=== PATIENT | male | born 1965 | race African-American/Black ===

== ENCOUNTER 2021-04-04 21:26 | Inpatient (IN) | payer MEDICAID ==
[~2021-04-04] VITALS: Ht 185.4 cm; Wt 100.9 kg
[2021-04-04] MEDS ORDERED: NALOXONE HCL 1MG/ML 2ML SYRINGE IV ONE (23:00)
[2021-04-04 23:27] LABS: Hematocrit 46.7 % (41.0-53.0); Hemoglobin 15.8 g/dL (13.5-17.5); Mean Corpuscular Hemoglobin 31.2 pg (28.0-32.0); Mean Corpuscular Hgb Conc. 33.8 g/dL (32.0-36.0); Mean Corpuscular Volume 92.2 fL (80.0-100.0); Red Blood Cells 5.06 10^6/uL (4.5-5.90); Red Cell Distribution Width 15.1 % (11.8-14.3); White Blood Cell 13.2 10^3/uL (4.4-10.8)
[2021-04-04 23:29] LABS: Urine Specific Gravity 1.021 (1.001-1.035)
[2021-04-04 23:29] LABS: Basophils % (manual) 0 (0.0-2.0); Blast Cells 0; Eosinophils % (manual) 0 (0-7); Metamyelocytes % 0; Myelocytes % 0; Promyelocytes % 0; Reactive Lymphocytes 0
[2021-04-04 23:30] LABS: Urine Bacteria FEW /hpf (None Seen); Urine Blood 2+ /uL (Negative); Urine Mucus FEW (None Seen); Urine WBC 67 /hpf (0 - 3); Urine WBC Clumps PRESENT /hpf (None Seen)
[2021-04-04 23:41] LABS: INR 0.99 (0.9-1.15); Partial Thromboplastin Time 20.9 sec (23.6-33.0)
[2021-04-04 23:57] LABS: Albumin 3.5 g/dL (3.4-5.0); Anion Gap 7 (5-15); Blood Urea Nitrogen 19 mg/dL (7-18); Calcium 9.1 mg/dL (8.5-10.1); Carbon Dioxide 21 mmol/L (21-32); Chloride 113 mmol/L (98-107); Glucose 157 mg/dL (74-106); Magnesium 2.1 mg/dL (1.6-2.6); Potassium 5.5 mmol/L (3.5-5.1); Sodium 141 mmol/L (136-145)
[2021-04-04 23:59] LABS: BUN/Creatinine Ratio 14.1; Blood Alcohol < 3.0 mg/dL (0-5); GFR African American 71 mL/min; GFR Non-African American 59 mL/min; Lactic Acid w/Reflex 3.7 mmol/L (0.4-2.0)
[2021-04-05 00:02] LABS: Amphetamine Screen, Urine NEGATIVE (NEGATIVE); Barbiturate Scree,Urine NEGATIVE (NEGATIVE); Benzodiazephine Screen, Urine NEGATIVE (NEGATIVE); Cannabinoid Screen, Urine POSITIVE (NEGATIVE); Cocaine Screen, Urine NEGATIVE (NEGATIVE); Opiate Scree,Urine NEGATIVE (NEGATIVE); Phencyclidine Screen, Urine NEGATIVE (NEGATIVE)
[2021-04-05 00:05] LABS: Alanine Aminotransferase 34 U/L (16-61); Alkaline Phosphatase 109 U/L (45-117); Aspartate Aminotransferase 50 U/L (15-37); Bilirubin, Total 0.3 mg/dL (0.2-1.0); Creatine Kinase IFCC 475 U/L (39-308)
[2021-04-05 00:13] LABS: Band Neutrophils % (manual) 8; Lymphocytes % (manual) 8 (10.0-50.0)
[2021-04-05 00:14] LABS: Monocytes % (manual) 1 (0-12)
[2021-04-05] MEDS ORDERED: hydrALAZINE HCL 20 MG/ML VL IV ONE (00:45)
[2021-04-05] MEDS ORDERED: SODIUM CHLORIDE 0.9% 1,000 ML IV ONE (02:15)
[2021-04-05] MEDS ORDERED: ASPirin 325 MG TAB PO ONE (03:15)
[2021-04-05] MEDS ORDERED: ENOXAPARIN SOD 100 MG/1 ML SYRINGE SC ONE (03:15)
[2021-04-05] MEDS ORDERED: LABETALOL HCL 5 MG/ML 4ML SYRINGE IV ONE (03:30)
[2021-04-05] MEDS ORDERED: cefTRIAXone 1GM/50ML D5W 50 ML IV ONE (05:30)
[2021-04-05] MEDS: SODIUM CHLORIDE 0.9% 1,000 ML IV SCH ×3 (07:00→23:58)
[2021-04-05] MEDS ORDERED: ACETAMINOPHEN 325 MG TAB PO PRN (07:00)
[2021-04-05] MEDS ORDERED: NITROGLYCERIN 0.4 MG SL TAB SL PRN (07:00)
[2021-04-05] MEDS ORDERED: ONDANSETRON HCL 4 MG/2 ML VIAL IV PRN (07:00)
[2021-04-05] MEDS ORDERED: DOCUSATE SOD 100 MG CAP PO PRN (07:00)
[2021-04-05] MEDS ORDERED: MORPHINE SULFATE INJECTION 2 MG/ML SYRG IV PRN (07:00)
[2021-04-05] MEDS: levoFLOXacin 500MG 100 ML IV SCH (10:54)
[2021-04-05 17:00] VITALS: BP 161/77
[2021-04-05] MEDS ORDERED: LORazepam 2MG/ML-1ML VIAL IV PRN (21:45)
[2021-04-05] MEDS: ATORVASTATIN 20 MG TAB PO SCH (22:17)
[2021-04-05 22:24] LABS: Cholesterol 161 mg/dL (< 200)
[2021-04-05 22:27] LABS: HDL Cholesterol 56 mg/dL (40-59); LDL Cholesterol 93 mg/dL (< 100); Triglycerides 74 mg/dL (< 150)
[2021-04-06] MEDS: NITROGLYCERIN 2% OINT 1GM PKG TD SCH ×4 (00:05→18:00)
[2021-04-06 00:16] VITALS: BP 145/91
[2021-04-06 05:24] VITALS: BP 125/73
[2021-04-06 06:16] LABS: Basophils % (manual) 0 (0.0-2.0); Blast Cells 0; Hematocrit 40.8 % (41.0-53.0); Hemoglobin 13.8 g/dL (13.5-17.5); Mean Corpuscular Hemoglobin 30.5 pg (28.0-32.0); Mean Corpuscular Hgb Conc. 33.7 g/dL (32.0-36.0); Mean Corpuscular Volume 90.3 fL (80.0-100.0); Metamyelocytes % 0; Myelocytes % 0; Promyelocytes % 0; Reactive Lymphocytes 0; Red Blood Cells 4.51 10^6/uL (4.5-5.90); Red Cell Distribution Width 14.9 % (11.8-14.3); White Blood Cell 8.3 10^3/uL (4.4-10.8)
[2021-04-06 06:58] LABS: Band Neutrophils % (manual) 2; Eosinophils % (manual) 1 (0-7); Lymphocytes % (manual) 33 (10.0-50.0); Monocytes % (manual) 10 (0-12)
[2021-04-06 08:56] VITALS: BP_SYST 112; BP_SYST 157; BP_DIAS 61; BP_DIAS 83
[2021-04-06 09:45] LABS: Albumin 3.2 g/dL (3.4-5.0); Potassium 3.8 mmol/L (3.5-5.1)
[2021-04-06 09:48] LABS: BUN/Creatinine Ratio 12.2; Bilirubin, Total 1.1 mg/dL (0.2-1.0); Total Protein 7.2 g/dL (6.4-8.2)
[2021-04-06] MEDS: levoFLOXacin 500MG 100 ML IV SCH (10:10)
[2021-04-06] MEDS: SODIUM CHLORIDE 0.9% 1,000 ML IV SCH ×3 (10:10→22:40)
[2021-04-06] MEDS: ENOXAPARIN SOD 40 MG/0.4 ML SYRINGE SC SCH (10:11)
[2021-04-06 13:00] VITALS: BP 164/81
[2021-04-06 17:00] VITALS: BP 173/79
[2021-04-06] MEDS: hydrALAZINE HCL 20 MG/ML VL IV PRN (20:48)
[2021-04-06] MEDS: ATORVASTATIN 20 MG TAB PO SCH (21:46)
[2021-04-06 22:00] VITALS: BP 140/111
[2021-04-07] MEDS: NITROGLYCERIN 2% OINT 1GM PKG TD SCH ×4 (00:45→19:09)
[2021-04-07 05:00] VITALS: BP 131/70
[2021-04-07] MEDS: SODIUM CHLORIDE 0.9% 1,000 ML IV SCH ×2 (06:49→19:08)
[2021-04-07] MEDS: ENOXAPARIN SOD 40 MG/0.4 ML SYRINGE SC SCH (08:54)
[2021-04-07] MEDS: levoFLOXacin 500MG 100 ML IV SCH (08:54)
[2021-04-07 09:00] VITALS: BP 142/79
[2021-04-07] MEDS: ERTAPENEM SOD INJ 1 GM in SODIUM CHL 0.9% 50 ML IV SCH (12:08)
[2021-04-07 13:00] VITALS: BP 111/72
[2021-04-07 17:00] VITALS: BP 157/72
[2021-04-07] MEDS ORDERED: ACETAMINOPHEN 500 MG TAB PO PRN (20:15)
[2021-04-07 22:00] VITALS: BP 164/84
[2021-04-07] MEDS: ATORVASTATIN 20 MG TAB PO SCH (22:11)
[2021-04-08] VITALS (39 sets, daily range): BP systolic 79–166; BP diastolic 46–109
[2021-04-08] MEDS: NITROGLYCERIN 2% OINT 1GM PKG TD SCH ×4 (00:25→18:00)
[2021-04-08] MEDS: SODIUM CHLORIDE 0.9% 1,000 ML IV SCH ×3 (06:00→20:54)
[2021-04-08] MEDS: hydrALAZINE HCL 20 MG/ML VL IV PRN (06:51)
[2021-04-08] MEDS: ENOXAPARIN SOD 40 MG/0.4 ML SYRINGE SC SCH (09:24)
[2021-04-08] MEDS: ERTAPENEM SOD INJ 1 GM in SODIUM CHL 0.9% 50 ML IV SCH (09:24)
[2021-04-08] MEDS: MORPHINE SULFATE 4 MG/ML SYR/VIAL IV PRN (09:24)
[2021-04-08] MEDS ORDERED: ROCURONIUM 10MG/ML 10ML VIAL IV ONE (14:41)
[2021-04-08] MEDS ORDERED: ETOMIDATE (2MG/ML) 20ML VIAL IV ONE (14:42)
[2021-04-08] MEDS ORDERED: SUCCINYLCHOLINE CHLORIDE 20 MG/ML 10ML VIAL IV ONE (14:42)
[2021-04-08] MEDS ORDERED: SODIUM BICARBONATE 8.4 % INJ 50ML VIAL IV ONE ×2 (14:48→14:49)
[2021-04-08] MEDS ORDERED: AMIODARONE 450mg/250ml AE 0 ML IV ONE (14:49)
[2021-04-08] MEDS ORDERED: AMIODARONE HCL 150 MG in D5W 5% 100 ML IV ONE (15:00)
[2021-04-08] MEDS ORDERED: MIDAZOLAM DRIP 50 mg/50mL 50 ML IV ONE (15:01)
[2021-04-08] MEDS: MIDAZOLAM DRIP 50 mg/50mL 50 ML IV SCH ×2 (15:02→21:00)
[2021-04-08] MEDS ORDERED: AMIODARONE HCL (50 MG/ ML) 3 ML VIAL IV ONE (15:02)
[2021-04-08 15:20] LABS: Basophils # (auto) 0 10 ^3/uL (0-0.2); Basophils % (auto) 0.3 % (0.0-2.0); Eosinophils # (auto) 0.1 10 ^3/uL (0-0.8); Eosinophils % (auto) 1.1 % (0.0-7.0); Hematocrit 41.8 % (41.0-53.0); Hemoglobin 13.9 g/dL (13.5-17.5); Lymphocytes % (auto) 30.9 % (10.0-50.0); Mean Corpuscular Hgb Conc. 33.2 g/dL (32.0-36.0); Mean Corpuscular Volume 93.4 fL (80.0-100.0); Monocytes # (auto) 0.4 10 ^3/uL (0-1.3); Monocytes % (auto) 2.8 % (0.0-12.0); Neutrophils # (auto) 8.5 10 ^3/uL (1.6-8.6); Neutrophils % (auto) 64.9 % (37.0-80.0); Red Blood Cells 4.48 10^6/uL (4.5-5.90); Red Cell Distribution Width 14.5 % (11.8-14.3)
[2021-04-08 15:36] LABS: Albumin 2.9 g/dL (3.4-5.0); Calcium 8.8 mg/dL (8.5-10.1)
[2021-04-08 15:50] LABS: Lactic Acid w/Reflex 14.2 mmol/L (0.4-2.0)
[2021-04-08 15:55] LABS: BUN/Creatinine Ratio 7.5; Bilirubin, Total 1.1 mg/dL (0.2-1.0); Total Protein 6.9 g/dL (6.4-8.2)
[2021-04-08] MEDS: NOREPINEPHRINE 8 MG/250ML KIT 250 ML IV SCH (19:37)
[2021-04-08 22:22] LABS: BUN/Creatinine Ratio 10.4; Calcium 8.4 mg/dL (8.5-10.1); Potassium 3.7 mmol/L (3.5-5.1)
[2021-04-08] MEDS: ATORVASTATIN 20 MG TAB PO SCH (22:49)
[2021-04-09] VITALS (95 sets, daily range): BP systolic 115–160; BP diastolic 69–93
[2021-04-09 05:08] LABS: Basophils # (auto) 0 10 ^3/uL (0-0.2); Basophils % (auto) 0.3 % (0.0-2.0); Eosinophils # (auto) 0.1 10 ^3/uL (0-0.8); Eosinophils % (auto) 1.2 % (0.0-7.0); Hematocrit 36.9 % (41.0-53.0); Hemoglobin 12.8 g/dL (13.5-17.5); Lymphocytes % (auto) 13.7 % (10.0-50.0); Mean Corpuscular Hemoglobin 31.6 pg (28.0-32.0); Mean Corpuscular Hgb Conc. 34.6 g/dL (32.0-36.0); Mean Corpuscular Volume 91.4 fL (80.0-100.0); Monocytes # (auto) 0.7 10 ^3/uL (0-1.3); Monocytes % (auto) 10.2 % (0.0-12.0); Neutrophils # (auto) 5.4 10 ^3/uL (1.6-8.6); Neutrophils % (auto) 74.6 % (37.0-80.0); Nucleated Red Blood Cells % 0.1 %; Red Blood Cells 4.04 10^6/uL (4.5-5.90); Red Cell Distribution Width 14.5 % (11.8-14.3); White Blood Cell 7.2 10^3/uL (4.4-10.8)
[2021-04-09 05:32] LABS: BUN/Creatinine Ratio 11.8; Calcium 8.3 mg/dL (8.5-10.1); Potassium 3.8 mmol/L (3.5-5.1)
[2021-04-09] MEDS: SODIUM CHLORIDE 0.9% 1,000 ML IV SCH ×3 (05:41→16:07)
[2021-04-09] MEDS: NITROGLYCERIN 2% OINT 1GM PKG TD SCH ×2 (06:00)
[2021-04-09] MEDS: MIDAZOLAM DRIP 50 mg/50mL 50 ML IV SCH ×5 (07:36→22:15)
[2021-04-09] MEDS: fentaNYL Drip 2500mCg/250mlNS 250 ML IV SCH (09:19)
[2021-04-09] MEDS: ENOXAPARIN SOD 40 MG/0.4 ML SYRINGE SC SCH (09:42)
[2021-04-09] MEDS: ERTAPENEM SOD INJ 1 GM in SODIUM CHL 0.9% 50 ML IV SCH (09:53)
[2021-04-09] MEDS: NOREPINEPHRINE 8 MG/250ML KIT 250 ML IV SCH (13:25)
[2021-04-09] MEDS: ATORVASTATIN 20 MG TAB PO SCH (22:56)
[2021-04-10] VITALS (100 sets, daily range): BP systolic 95–174; BP diastolic 61–89
[2021-04-10] MEDS: SODIUM CHLORIDE 0.9% 1,000 ML IV SCH ×3 (01:30→19:27)
[2021-04-10] MEDS: MIDAZOLAM DRIP 50 mg/50mL 50 ML IV SCH ×2 (02:31→06:23)
[2021-04-10 05:01] LABS: Basophils # (auto) 0 10 ^3/uL (0-0.2); Basophils % (auto) 0.5 % (0.0-2.0); Eosinophils # (auto) 0.2 10 ^3/uL (0-0.8); Eosinophils % (auto) 3.3 % (0.0-7.0); Hematocrit 37.1 % (41.0-53.0); Hemoglobin 12.5 g/dL (13.5-17.5); Lymphocytes # (auto) 1.2 10 ^3/uL (0.4-5.4); Lymphocytes % (auto) 17.9 % (10.0-50.0); Mean Corpuscular Hemoglobin 30.8 pg (28.0-32.0); Mean Corpuscular Hgb Conc. 33.7 g/dL (32.0-36.0); Mean Corpuscular Volume 91.5 fL (80.0-100.0); Monocytes # (auto) 0.7 10 ^3/uL (0-1.3); Monocytes % (auto) 9.8 % (0.0-12.0); Neutrophils # (auto) 4.7 10 ^3/uL (1.6-8.6); Neutrophils % (auto) 68.5 % (37.0-80.0); Nucleated Red Blood Cells % 0.1 %; Red Blood Cells 4.06 10^6/uL (4.5-5.90); Red Cell Distribution Width 14.4 % (11.8-14.3); White Blood Cell 6.9 10^3/uL (4.4-10.8)
[2021-04-10 05:21] LABS: Albumin 2.4 g/dL (3.4-5.0); Calcium 8.2 mg/dL (8.5-10.1); Potassium 3.9 mmol/L (3.5-5.1)
[2021-04-10 05:24] LABS: BUN/Creatinine Ratio 12.7; Bilirubin, Total 0.7 mg/dL (0.2-1.0); Total Protein 5.9 g/dL (6.4-8.2)
[2021-04-10] MEDS: ENOXAPARIN SOD 40 MG/0.4 ML SYRINGE SC SCH (08:48)
[2021-04-10] MEDS: ERTAPENEM SOD INJ 1 GM in SODIUM CHL 0.9% 50 ML IV SCH (08:49)
[2021-04-10] MEDS: fentaNYL Drip 2500mCg/250mlNS 250 ML IV SCH (09:00)
[2021-04-10] MEDS: NOREPINEPHRINE 8 MG/250ML KIT 250 ML IV SCH (14:45)
[2021-04-10 18:37] LABS: Protein, Urine 147.8 mg/dL (0.0-11.9); Urine Bacteria NONE SEEN /hpf (None Seen); Urine Blood 2+ /uL (Negative); Urine Hyaline Cast MANY /lpf (0 - 2); Urine Mucus FEW (None Seen); Urine Specific Gravity 1.021 (1.001-1.035); Urine WBC 14 /hpf (0 - 3)
[2021-04-10] MEDS: hydrALAZINE HCL 20 MG/ML VL IV PRN (19:07)
[2021-04-10] MEDS: ATORVASTATIN 20 MG TAB PO SCH (22:00)
[2021-04-11] VITALS (88 sets, daily range): BP systolic 129–189; BP diastolic 57–91
[2021-04-11] MEDS: fentaNYL Drip 2500mCg/250mlNS 250 ML IV SCH (03:26)
[2021-04-11] MEDS: SODIUM CHLORIDE 0.9% 1,000 ML IV SCH (03:30)
[2021-04-11 05:58] LABS: Basophils # (auto) 0 10 ^3/uL (0-0.2); Basophils % (auto) 0.8 % (0.0-2.0); Eosinophils # (auto) 0.2 10 ^3/uL (0-0.8); Eosinophils % (auto) 2.9 % (0.0-7.0); Hematocrit 33.4 % (41.0-53.0); Hemoglobin 11.6 g/dL (13.5-17.5); Lymphocytes % (auto) 14.5 % (10.0-50.0); Mean Corpuscular Hemoglobin 31.5 pg (28.0-32.0); Mean Corpuscular Hgb Conc. 34.7 g/dL (32.0-36.0); Monocytes # (auto) 0.7 10 ^3/uL (0-1.3); Monocytes % (auto) 10.6 % (0.0-12.0); Neutrophils # (auto) 4.7 10 ^3/uL (1.6-8.6); Neutrophils % (auto) 71.2 % (37.0-80.0); Red Blood Cells 3.68 10^6/uL (4.5-5.90); Red Cell Distribution Width 14.7 % (11.8-14.3); White Blood Cell 6.6 10^3/uL (4.4-10.8)
[2021-04-11 06:23] LABS: BUN/Creatinine Ratio 15.1; Calcium 8.4 mg/dL (8.5-10.1); Potassium 3.9 mmol/L (3.5-5.1)
[2021-04-11] MEDS: ENOXAPARIN SOD 40 MG/0.4 ML SYRINGE SC SCH (09:59)
[2021-04-11] MEDS: ERTAPENEM SOD INJ 1 GM in SODIUM CHL 0.9% 50 ML IV SCH (09:59)
[2021-04-11] MEDS: hydrALAZINE HCL 20 MG/ML VL IV PRN ×3 (10:01→22:56)
[2021-04-11] MEDS ORDERED: FUROSEMIDE 40 MG/4 ML VIAL IV ONE (11:30)
[2021-04-11] MEDS: LABETALOL HCL 5 MG/ML 4ML SYRINGE IV PRN ×2 (12:55→18:11)
[2021-04-11] MEDS: ACETAMINOPHEN 650 MG RECT SUPP PR PRN ×2 (12:55→18:10)
[2021-04-11] MEDS: NOREPINEPHRINE 8 MG/250ML KIT 250 ML IV SCH (14:45)
[2021-04-11] MEDS: MIDAZOLAM DRIP 50 mg/50mL 50 ML IV SCH (15:00)
[2021-04-11] MEDS: InsuLIN REG 1unit/0.01ml Soln (100units/ml) SC SCH (17:10)
[2021-04-11] MEDS: ACCU-CHEK COMFORT CURVE STRIP VI SCH (17:10)
[2021-04-11] MEDS: ATORVASTATIN 20 MG TAB PO SCH (19:47)
[2021-04-12] VITALS (91 sets, daily range): BP systolic 75–140; BP diastolic 41–87
[2021-04-12 00:59] LABS: Basophils # (auto) 0.1 10 ^3/uL (0-0.2); Basophils % (auto) 0.9 % (0.0-2.0); Eosinophils # (auto) 0.2 10 ^3/uL (0-0.8); Eosinophils % (auto) 1.7 % (0.0-7.0); Hematocrit 37.9 % (41.0-53.0); Hemoglobin 13.4 g/dL (13.5-17.5); Lymphocytes # (auto) 1.2 10 ^3/uL (0.4-5.4); Lymphocytes % (auto) 9.9 % (10.0-50.0); Mean Corpuscular Hemoglobin 32.2 pg (28.0-32.0); Mean Corpuscular Hgb Conc. 35.4 g/dL (32.0-36.0); Mean Corpuscular Volume 91.1 fL (80.0-100.0); Monocytes # (auto) 0.9 10 ^3/uL (0-1.3); Monocytes % (auto) 7.3 % (0.0-12.0); Neutrophils # (auto) 9.7 10 ^3/uL (1.6-8.6); Neutrophils % (auto) 80.2 % (37.0-80.0); Nucleated Red Blood Cells % 0.1 %; Red Blood Cells 4.17 10^6/uL (4.5-5.90); Red Cell Distribution Width 14.1 % (11.8-14.3); White Blood Cell 12.2 10^3/uL (4.4-10.8)
[2021-04-12 01:26] LABS: Albumin 2.6 g/dL (3.4-5.0); Calcium 8.8 mg/dL (8.5-10.1)
[2021-04-12 01:28] LABS: BUN/Creatinine Ratio 14.2
[2021-04-12 01:31] LABS: Bilirubin, Total 1.1 mg/dL (0.2-1.0); Total Protein 6.9 g/dL (6.4-8.2)
[2021-04-12] MEDS ORDERED: ETOMIDATE (2MG/ML) 20ML VIAL IV ONE (01:36)
[2021-04-12] MEDS ORDERED: SUCCINYLCHOLINE CHLORIDE 20 MG/ML 10ML VIAL IV ONE (01:37)
[2021-04-12] MEDS ORDERED: PROPOFOL 100 ML IV ONE (01:38)
[2021-04-12] MEDS: PROPOFOL 100 ML IV SCH ×2 (01:45→10:15)
[2021-04-12] MEDS: fentaNYL Drip 2500mCg/250mlNS 250 ML IV SCH (01:45)
[2021-04-12 02:36] LABS: Lactic Acid w/Reflex 2.5 mmol/L (0.4-2.0)
[2021-04-12] MEDS: InsuLIN REG 1unit/0.01ml Soln (100units/ml) SC SCH ×5 (05:30→23:55)
[2021-04-12] MEDS: ACCU-CHEK COMFORT CURVE STRIP VI SCH ×5 (05:30→23:55)
[2021-04-12] MEDS: FUROSEMIDE 40 MG/4 ML VIAL IV SCH (10:00)
[2021-04-12] MEDS: ENOXAPARIN SOD 40 MG/0.4 ML SYRINGE SC SCH (10:00)
[2021-04-12] MEDS: ERTAPENEM SOD INJ 1 GM in SODIUM CHL 0.9% 50 ML IV SCH (10:01)
[2021-04-12] MEDS ORDERED: VANCOMYCIN PER PHARMACY 0 MG IV SCH (15:15)
[2021-04-12] MEDS: MIDAZOLAM DRIP 50 mg/50mL 50 ML IV SCH (15:30)
[2021-04-12] MEDS: NOREPINEPHRINE 8 MG/250ML KIT 250 ML IV SCH (15:32)
[2021-04-12] MEDS: VANCOMYCIN 1GM/250ML 250 ML IV SCH (16:38)
[2021-04-12] MEDS: FREE WATER GT SCH ×2 (18:30→21:43)
[2021-04-12] MEDS: MEROPENEM 1GM IVPB 100 ML IV SCH (21:44)
[2021-04-12] MEDS: ATORVASTATIN 20 MG TAB PO SCH (21:44)
[2021-04-12] MEDS: ALBUTEROL SULF 2.5 MG/0.5ML(0.5%) NEB SOLN NEB PRN (22:12)
[2021-04-12] MEDS: IPRATROPIUM BROM 0.5 MG/2.5ML INH SOL NEB PRN (22:12)
[2021-04-13] VITALS (98 sets, daily range): BP systolic 89–140; BP diastolic 47–74
[2021-04-13] MEDS: FREE WATER GT SCH ×6 (02:00→22:38)
[2021-04-13 03:53] LABS: Basophils # (auto) 0.1 10 ^3/uL (0-0.2); Eosinophils # (auto) 0.4 10 ^3/uL (0-0.8); Hemoglobin 10.9 g/dL (13.5-17.5); Lymphocytes # (auto) 1.7 10 ^3/uL (0.4-5.4); Lymphocytes % (auto) 22.4 % (10.0-50.0); Mean Corpuscular Hemoglobin 31.2 pg (28.0-32.0); Mean Corpuscular Hgb Conc. 34.1 g/dL (32.0-36.0); Mean Corpuscular Volume 91.4 fL (80.0-100.0); Monocytes # (auto) 0.6 10 ^3/uL (0-1.3); Monocytes % (auto) 8.5 % (0.0-12.0); Neutrophils # (auto) 4.8 10 ^3/uL (1.6-8.6); Neutrophils % (auto) 63.1 % (37.0-80.0); Nucleated Red Blood Cells % 0.2 %; Red Cell Distribution Width 14.6 % (11.8-14.3); White Blood Cell 7.6 10^3/uL (4.4-10.8)
[2021-04-13] MEDS: VANCOMYCIN 1GM/250ML 250 ML IV SCH (04:00)
[2021-04-13 04:23] LABS: Calcium 8.6 mg/dL (8.5-10.1); Potassium 3.9 mmol/L (3.5-5.1)
[2021-04-13 04:29] LABS: Albumin 2.1 g/dL (3.4-5.0); BUN/Creatinine Ratio 14.3; Bilirubin, Total 0.4 mg/dL (0.2-1.0); Phosphorus 3.5 mg/dL (2.5-4.90); Total Protein 5.9 g/dL (6.4-8.2)
[2021-04-13] MEDS: ACCU-CHEK COMFORT CURVE STRIP VI SCH ×3 (05:46→17:26)
[2021-04-13] MEDS: InsuLIN REG 1unit/0.01ml Soln (100units/ml) SC SCH ×3 (05:47→17:18)
[2021-04-13] MEDS: MEROPENEM 1GM IVPB 100 ML IV SCH ×3 (06:00→22:38)
[2021-04-13] MEDS: ALBUTEROL SULF 2.5 MG/0.5ML(0.5%) NEB SOLN NEB PRN (06:26)
[2021-04-13] MEDS: IPRATROPIUM BROM 0.5 MG/2.5ML INH SOL NEB PRN (06:26)
[2021-04-13] MEDS: PROPOFOL 100 ML IV SCH ×3 (08:30→22:39)
[2021-04-13] MEDS: PANTOPRAZOLE 40 MG/10 ML VIAL INJ IV SCH (10:06)
[2021-04-13] MEDS: ENOXAPARIN SOD 40 MG/0.4 ML SYRINGE SC SCH (10:06)
[2021-04-13] MEDS: FUROSEMIDE 40 MG/4 ML VIAL IV SCH (10:07)
[2021-04-13] MEDS: DEXTROSE (50%) 50ML SYRG IV PRN (12:47)
[2021-04-13] MEDS: fentaNYL Drip 2500mCg/250mlNS 250 ML IV SCH (13:00)
[2021-04-13] MEDS: ATORVASTATIN 20 MG TAB PO SCH (22:39)
[2021-04-13] MEDS: MIDAZOLAM DRIP 50 mg/50mL 50 ML IV SCH (22:40)
[2021-04-13] MEDS: NOREPINEPHRINE 8 MG/250ML KIT 250 ML IV SCH (22:40)
[2021-04-14] VITALS (99 sets, daily range): BP systolic 90–163; BP diastolic 46–84
[2021-04-14] MEDS: ACCU-CHEK COMFORT CURVE STRIP VI SCH ×3 (00:08→12:00)
[2021-04-14] MEDS: FREE WATER GT SCH ×5 (02:00→22:13)
[2021-04-14 04:10] LABS: Basophils # (auto) 0 10 ^3/uL (0-0.2); Basophils % (auto) 0.8 % (0.0-2.0); Eosinophils # (auto) 0.3 10 ^3/uL (0-0.8); Eosinophils % (auto) 6.3 % (0.0-7.0); Hematocrit 32.3 % (41.0-53.0); Hemoglobin 11.1 g/dL (13.5-17.5); Lymphocytes # (auto) 1.5 10 ^3/uL (0.4-5.4); Lymphocytes % (auto) 27.1 % (10.0-50.0); Mean Corpuscular Hemoglobin 31.5 pg (28.0-32.0); Mean Corpuscular Hgb Conc. 34.2 g/dL (32.0-36.0); Mean Corpuscular Volume 91.9 fL (80.0-100.0); Monocytes # (auto) 0.6 10 ^3/uL (0-1.3); Monocytes % (auto) 11.1 % (0.0-12.0); Neutrophils % (auto) 54.7 % (37.0-80.0); Nucleated Red Blood Cells % 0.1 %; Red Blood Cells 3.52 10^6/uL (4.5-5.90); Red Cell Distribution Width 14.2 % (11.8-14.3); White Blood Cell 5.5 10^3/uL (4.4-10.8)
[2021-04-14 04:36] LABS: Albumin 2.1 g/dL (3.4-5.0); Calcium 8.4 mg/dL (8.5-10.1); Potassium 3.8 mmol/L (3.5-5.1)
[2021-04-14 04:39] LABS: BUN/Creatinine Ratio 16.9; Bilirubin, Total 0.6 mg/dL (0.2-1.0); Total Protein 6.2 g/dL (6.4-8.2)
[2021-04-14] MEDS: InsuLIN REG 1unit/0.01ml Soln (100units/ml) SC SCH ×3 (05:25→12:00)
[2021-04-14] MEDS: MEROPENEM 1GM IVPB 100 ML IV SCH ×3 (05:26→22:12)
[2021-04-14] MEDS: fentaNYL Drip 2500mCg/250mlNS 250 ML IV SCH ×2 (06:25→22:19)
[2021-04-14] MEDS: PROPOFOL 100 ML IV SCH ×3 (08:02→22:20)
[2021-04-14] MEDS ORDERED: EPINEPHrine HCL 1 MG/1 ML AMP ONE (08:56)
[2021-04-14] MEDS ORDERED: SODIUM CHLORIDE LOCK 40 ML ONE (08:56)
[2021-04-14] MEDS ORDERED: LIDOCAINE 2%HCL (LOCAL ANESTH.) INJ 20ML MDV ONE (08:56)
[2021-04-14] MEDS ORDERED: MIDAZOLAM HCL 5 MG/ML-1ML VIAL ONE (08:57)
[2021-04-14] MEDS ORDERED: fentaNYL CITRATE 100 MCG/2 ML VL ONE (08:57)
[2021-04-14] MEDS ORDERED: GLYCOPYRROLATE 0.2 MG/ML 1ML VIAL ONE (08:57)
[2021-04-14] MEDS ORDERED: LIDOCAINE HCL 2% TOP JELLY 5ML TOP ONE (08:57)
[2021-04-14] MEDS: PANTOPRAZOLE 40 MG/10 ML VIAL INJ IV SCH (10:52)
[2021-04-14] MEDS: ENOXAPARIN SOD 40 MG/0.4 ML SYRINGE SC SCH (10:52)
[2021-04-14] MEDS: NOREPINEPHRINE 8 MG/250ML KIT 250 ML IV SCH (14:45)
[2021-04-14] MEDS: MIDAZOLAM DRIP 50 mg/50mL 50 ML IV SCH (15:00)
[2021-04-14] MEDS: ATORVASTATIN 20 MG TAB PO SCH (22:14)
[2021-04-15] VITALS (48 sets, daily range): BP systolic 95–173; BP diastolic 50–94
[2021-04-15] MEDS: ACCU-CHEK COMFORT CURVE STRIP VI SCH ×5 (00:23→23:52)
[2021-04-15] MEDS: DEXTROSE (50%) 50ML SYRG IV PRN ×2 (00:30→06:10)
[2021-04-15] MEDS: FREE WATER GT SCH ×6 (02:00→22:00)
[2021-04-15] MEDS: PROPOFOL 100 ML IV SCH ×4 (04:02→19:56)
[2021-04-15 04:20] LABS: Basophils # (auto) 0 10 ^3/uL (0-0.2); Basophils % (auto) 0.5 % (0.0-2.0); Eosinophils # (auto) 0.4 10 ^3/uL (0-0.8); Eosinophils % (auto) 5.7 % (0.0-7.0); Hemoglobin 11.9 g/dL (13.5-17.5); Lymphocytes % (auto) 30.3 % (10.0-50.0); Mean Corpuscular Hemoglobin 31.2 pg (28.0-32.0); Mean Corpuscular Hgb Conc. 33.9 g/dL (32.0-36.0); Mean Corpuscular Volume 91.9 fL (80.0-100.0); Monocytes # (auto) 0.7 10 ^3/uL (0-1.3); Monocytes % (auto) 10.1 % (0.0-12.0); Neutrophils # (auto) 3.6 10 ^3/uL (1.6-8.6); Neutrophils % (auto) 53.4 % (37.0-80.0); Red Blood Cells 3.81 10^6/uL (4.5-5.90); Red Cell Distribution Width 14.2 % (11.8-14.3); White Blood Cell 6.8 10^3/uL (4.4-10.8)
[2021-04-15 04:43] LABS: Potassium 3.8 mmol/L (3.5-5.1)
[2021-04-15 04:50] LABS: Albumin 2.5 g/dL (3.4-5.0); BUN/Creatinine Ratio 17.3; Calcium 8.8 mg/dL (8.5-10.1)
[2021-04-15 04:54] LABS: Bilirubin, Total 0.5 mg/dL (0.2-1.0); Total Protein 6.9 g/dL (6.4-8.2)
[2021-04-15] MEDS: InsuLIN REG 1unit/0.01ml Soln (100units/ml) SC SCH ×5 (05:52→23:52)
[2021-04-15] MEDS: MEROPENEM 1GM IVPB 100 ML IV SCH ×3 (05:52→22:10)
[2021-04-15] MEDS: ACETAMINOPHEN 650 MG RECT SUPP PR PRN ×2 (06:30→23:54)
[2021-04-15] MEDS: NOREPINEPHRINE 8 MG/250ML KIT 250 ML IV SCH (14:45)
[2021-04-15] MEDS: MIDAZOLAM DRIP 50 mg/50mL 50 ML IV SCH (15:00)
[2021-04-15] MEDS ORDERED: FUROSEMIDE 40 MG/4 ML VIAL IV ONE (15:45)
[2021-04-15] MEDS: PANTOPRAZOLE 40 MG/10 ML VIAL INJ IV SCH (19:39)
[2021-04-15] MEDS: ENOXAPARIN SOD 40 MG/0.4 ML SYRINGE SC SCH (19:40)
[2021-04-15] MEDS: ATORVASTATIN 20 MG TAB PO SCH (22:00)
[2021-04-15] MEDS: hydrALAZINE HCL 20 MG/ML VL IV PRN (22:00)
[2021-04-16] VITALS (13 sets, daily range): BP systolic 137–180; BP diastolic 69–84
[2021-04-16] MEDS: MORPHINE SULFATE 4 MG/ML SYR/VIAL IV PRN (01:04)
[2021-04-16] MEDS: FREE WATER GT SCH ×4 (02:00→14:00)
[2021-04-16] MEDS: hydrALAZINE HCL 20 MG/ML VL IV PRN (05:00)
[2021-04-16] MEDS: ACCU-CHEK COMFORT CURVE STRIP VI SCH ×3 (05:18→17:13)
[2021-04-16] MEDS: InsuLIN REG 1unit/0.01ml Soln (100units/ml) SC SCH ×3 (05:19→17:13)
[2021-04-16] MEDS: MEROPENEM 1GM IVPB 100 ML IV SCH ×3 (05:19→22:30)
[2021-04-16] MEDS: fentaNYL Drip 2500mCg/250mlNS 250 ML IV SCH (05:19)
[2021-04-16] MEDS: LABETALOL HCL 5 MG/ML 4ML SYRINGE IV PRN ×2 (09:02)
[2021-04-16] MEDS: ENOXAPARIN SOD 40 MG/0.4 ML SYRINGE SC SCH (09:57)
[2021-04-16] MEDS: PANTOPRAZOLE 40 MG/10 ML VIAL INJ IV SCH (09:57)
[2021-04-16 10:47] LABS: Basophils # (auto) 0 10 ^3/uL (0-0.2); Basophils % (auto) 0.4 % (0.0-2.0); Eosinophils # (auto) 0.2 10 ^3/uL (0-0.8); Eosinophils % (auto) 2.1 % (0.0-7.0); Hematocrit 35.9 % (41.0-53.0); Hemoglobin 12.4 g/dL (13.5-17.5); Lymphocytes % (auto) 12.2 % (10.0-50.0); Mean Corpuscular Hemoglobin 31.3 pg (28.0-32.0); Mean Corpuscular Hgb Conc. 34.5 g/dL (32.0-36.0); Mean Corpuscular Volume 90.9 fL (80.0-100.0); Monocytes # (auto) 0.6 10 ^3/uL (0-1.3); Monocytes % (auto) 7.1 % (0.0-12.0); Neutrophils # (auto) 6.4 10 ^3/uL (1.6-8.6); Neutrophils % (auto) 78.2 % (37.0-80.0); Red Blood Cells 3.95 10^6/uL (4.5-5.90); Red Cell Distribution Width 13.9 % (11.8-14.3); White Blood Cell 8.2 10^3/uL (4.4-10.8)
[2021-04-16 11:18] LABS: Potassium 3.7 mmol/L (3.5-5.1)
[2021-04-16 11:24] LABS: Albumin 2.6 g/dL (3.4-5.0); BUN/Creatinine Ratio 19.4; Bilirubin, Total 0.8 mg/dL (0.2-1.0); Calcium 9.4 mg/dL (8.5-10.1); Magnesium 1.7 mg/dL (1.6-2.6); Phosphorus 3.3 mg/dL (2.5-4.90); Total Protein 7.4 g/dL (6.4-8.2)
[2021-04-16] MEDS: FREE WATER PO SCH ×2 (17:38→22:00)
[2021-04-16] MEDS: ATORVASTATIN 20 MG TAB PO SCH (22:00)
[2021-04-17] MEDS: ACCU-CHEK COMFORT CURVE STRIP VI SCH ×5 (00:23→23:57)
[2021-04-17] MEDS: FREE WATER PO SCH ×3 (02:00→10:01)
[2021-04-17 05:00] VITALS: BP 157/92
[2021-04-17] MEDS: InsuLIN REG 1unit/0.01ml Soln (100units/ml) SC SCH ×5 (05:41→23:58)
[2021-04-17] MEDS: MEROPENEM 1GM IVPB 100 ML IV SCH ×3 (05:41→22:14)
[2021-04-17 09:00] VITALS: BP 155/85
[2021-04-17] MEDS: PANTOPRAZOLE 40 MG/10 ML VIAL INJ IV SCH (09:59)
[2021-04-17] MEDS: ENOXAPARIN SOD 40 MG/0.4 ML SYRINGE SC SCH (10:00)
[2021-04-17 13:00] VITALS: BP 158/81
[2021-04-17 17:00] VITALS: BP 143/77
[2021-04-17] MEDS: ATORVASTATIN 20 MG TAB PO SCH (21:12)
[2021-04-17 22:00] VITALS: BP 150/70
[2021-04-17] MEDS: HYDROcodone-ACET 5/325MG TAB PO PRN (22:14)
[2021-04-18 05:00] VITALS: BP 151/99
[2021-04-18] MEDS: MEROPENEM 1GM IVPB 100 ML IV SCH ×3 (05:58→22:27)
[2021-04-18] MEDS: ACCU-CHEK COMFORT CURVE STRIP VI SCH ×3 (05:59→17:33)
[2021-04-18] MEDS: InsuLIN REG 1unit/0.01ml Soln (100units/ml) SC SCH ×3 (05:59→17:33)
[2021-04-18] MEDS ORDERED: ADENOSINE 83 MG in GIVE UN-DILUTED 0 ML IV STA (07:37)
[2021-04-18 09:00] VITALS: BP 178/98
[2021-04-18] MEDS ORDERED: ALBUTEROL SULF 2.5 MG/0.5ML(0.5%) NEB SOLN ONE (09:08)
[2021-04-18] MEDS: HYDROcodone-ACET 5/325MG TAB PO PRN (10:24)
[2021-04-18] MEDS: PANTOPRAZOLE 40 MG/10 ML VIAL INJ IV SCH (10:25)
[2021-04-18] MEDS: hydrALAZINE HCL 20 MG/ML VL IV PRN (10:55)
[2021-04-18 11:32] VITALS: BP 178/98
[2021-04-18 17:00] VITALS: BP 139/72
[2021-04-18] MEDS: ATORVASTATIN 20 MG TAB PO SCH (21:01)
[2021-04-18 22:00] VITALS: BP 156/88
[2021-04-19 05:00] VITALS: BP 154/87
[2021-04-19] MEDS: MEROPENEM 1GM IVPB 100 ML IV SCH (05:28)
[2021-04-19] MEDS: ACCU-CHEK COMFORT CURVE STRIP VI SCH ×3 (05:29→12:00)
[2021-04-19] MEDS: InsuLIN REG 1unit/0.01ml Soln (100units/ml) SC SCH ×3 (05:35→12:00)
[2021-04-19 05:57] LABS: Basophils # (auto) 0.1 10 ^3/uL (0-0.2); Basophils % (auto) 0.8 % (0.0-2.0); Eosinophils # (auto) 0.2 10 ^3/uL (0-0.8); Eosinophils % (auto) 3.6 % (0.0-7.0); Hematocrit 36.8 % (41.0-53.0); Hemoglobin 12.6 g/dL (13.5-17.5); Lymphocytes # (auto) 1.8 10 ^3/uL (0.4-5.4); Lymphocytes % (auto) 26.1 % (10.0-50.0); Mean Corpuscular Hemoglobin 30.7 pg (28.0-32.0); Mean Corpuscular Hgb Conc. 34.3 g/dL (32.0-36.0); Mean Corpuscular Volume 89.4 fL (80.0-100.0); Monocytes # (auto) 0.8 10 ^3/uL (0-1.3); Monocytes % (auto) 12.4 % (0.0-12.0); Neutrophils # (auto) 3.9 10 ^3/uL (1.6-8.6); Neutrophils % (auto) 57.1 % (37.0-80.0); Red Blood Cells 4.12 10^6/uL (4.5-5.90); Red Cell Distribution Width 13.9 % (11.8-14.3); White Blood Cell 6.8 10^3/uL (4.4-10.8)
[2021-04-19 06:20] LABS: Calcium 8.7 mg/dL (8.5-10.1); Magnesium 1.8 mg/dL (1.6-2.6); Potassium 3.4 mmol/L (3.5-5.1)
[2021-04-19 06:22] LABS: Phosphorus 2.7 mg/dL (2.5-4.90)
[2021-04-19 07:42] LABS: BUN/Creatinine Ratio 16.7
[2021-04-19] MEDS ORDERED: POTASSIUM CHL 20 Meq TABLET PO ONE ×2 (08:15→12:00)
[2021-04-19 09:14] VITALS: BP 141/60
[2021-04-19] MEDS: PANTOPRAZOLE 40 MG/10 ML VIAL INJ IV SCH (10:16)
[2021-04-19] MEDS: HYDROcodone-ACET 5/325MG TAB PO PRN (10:31)
[2021-04-19] MEDS ORDERED: MAGNESIUM SULFATE 1GM/100ML 100 ML IV SCH (12:00)
[2021-04-19] MEDS ORDERED: HEPARIN SODIUM (PORCINE) 5000 UNITS/ML 1ML VIAL ONE (12:20)
[2021-04-19] MEDS ORDERED: ANGIOMAX 250 MG VIAL IV ONE (12:20)
[2021-04-19] MEDS ORDERED: SODIUM CHL 0.9% 50 ML ONE (12:21)
[2021-04-19] MEDS ORDERED: MIDAZOLAM HCL 2MG/2ML 2ml VIAL (1mg/ml) ONE (12:21)
[2021-04-19] MEDS ORDERED: VERAPAMIL 2.5MG/ML INJ 2ML VIAL IV ONE (12:21)
[2021-04-19] MEDS ORDERED: fentaNYL CITRATE 100 MCG/2 ML VL ONE (12:21)
[2021-04-19] MEDS ORDERED: LIDOCAINE 2%HCL (LOCAL ANESTH.) INJ 20ML MDV ONE (13:10)
[2021-04-19] MEDS ORDERED: LOSARTAN POTASSIUM 25 MG TAB PO ONE (13:45)
[2021-04-19 16:28] VITALS: BP 141/60
[2021-04-19 16:45] VITALS: BP 148/99
[2021-04-20] MEDS ORDERED: ASPirin 81 mg TAB PO SCH (10:00)
[2021-04-20] MEDS ORDERED: LOSARTAN POTASSIUM 25 MG TAB PO SCH (10:00)
== END 2021-04-19 19:50 | disposition home health service (06) | DRG 52 ==
LOC: ER 21:26 → EDBD 21:26 → TELE 04-05 06:46 → TELE-WESTW 04-05 16:15 → ICU WEST 04-08 19:19 → TELE-CENTR 04-16 11:00
PROVIDERS: ADMIT Internal Medicine; ATTEND Internal Medicine
PROC: 5A1945Z Respiratory Ventilation, 24-96 Consecutive Hours (ICD-10-PCS; principal; 2021-04-08)
PROC: 0BH17EZ Insertion of Endotracheal Airway into Trachea, Via Natural or Artificial Opening (ICD-10-PCS; 2021-04-08)
PROC: 06HY33Z Insertion of Infusion Device into Lower Vein, Percutaneous Approach (ICD-10-PCS; 2021-04-08)
PROC: 5A12012 Performance of Cardiac Output, Single, Manual (ICD-10-PCS; 2021-04-08)
PROC: 5A09357 Assistance with Respiratory Ventilation, Less than 24 Consecutive Hours, Continuous Positive Airway Pressure (ICD-10-PCS; 2021-04-11)
PROC: 5A1945Z Respiratory Ventilation, 24-96 Consecutive Hours (ICD-10-PCS; 2021-04-12)
PROC: 0BH17EZ Insertion of Endotracheal Airway into Trachea, Via Natural or Artificial Opening (ICD-10-PCS; 2021-04-12)
PROC: 0B9F7ZX Drainage of Right Lower Lung Lobe, Via Natural or Artificial Opening, Diagnostic (ICD-10-PCS; 2021-04-14)
PROC: 0BJ08ZZ Inspection of Tracheobronchial Tree, Via Natural or Artificial Opening Endoscopic (ICD-10-PCS; 2021-04-14)
PROC: 0B9D7ZX Drainage of Right Middle Lung Lobe, Via Natural or Artificial Opening, Diagnostic (ICD-10-PCS; 2021-04-14)
PROC: 5A09357 Assistance with Respiratory Ventilation, Less than 24 Consecutive Hours, Continuous Positive Airway Pressure (ICD-10-PCS; 2021-04-15)
PROC: 4A023N7 Measurement of Cardiac Sampling and Pressure, Left Heart, Percutaneous Approach (ICD-10-PCS; 2021-04-19)
PROC: B211YZZ Fluoroscopy of Multiple Coronary Arteries using Other Contrast (ICD-10-PCS; 2021-04-19)
DX: G92.9 Unspecified toxic encephalopathy (principal); J96.01 Acute respiratory failure with hypoxia; J69.0 Pneumonitis due to inhalation of food and vomit; I21.4 Non-ST elevation (NSTEMI) myocardial infarction; T17.890A Other foreign object in other parts of respiratory tract causing asphyxiation, initial encounter; G93.1 Anoxic brain damage, not elsewhere classified; E87.2 Acidosis; I46.9 Cardiac arrest, cause unspecified; N17.9 Acute kidney failure, unspecified; N39.0 Urinary tract infection, site not specified; B96.20 Unspecified Escherichia coli [E. coli] as the cause of diseases classified elsewhere; I47.2 Ventricular tachycardia; I69.354 Hemiplegia and hemiparesis following cerebral infarction affecting left non-dominant side; I16.0 Hypertensive urgency; J98.19 Other pulmonary collapse; I25.119 Atherosclerotic heart disease of native coronary artery with unspecified angina pectoris; Z20.822 Contact with and (suspected) exposure to COVID-19; X58.XXXA Exposure to other specified factors, initial encounter; Y93.89 Activity, other specified; E66.9 Obesity, unspecified; I13.0 Hypertensive heart and chronic kidney disease with heart failure and stage 1 through stage 4 chronic kidney disease, or unspecified chronic kidney disease; N18.9 Chronic kidney disease, unspecified; Y92.89 Other specified places as the place of occurrence of the external cause; Y99.8 Other external cause status; Z68.29 Body mass index [BMI] 29.0-29.9, adult
CPT/HCPCS: 31622; 31624; 36415; 36600; 70450; 70551; 71045; 78452; 80048; 80053; 80061; 80307; 80320; 81001; 82043; 82550; 82565; 82570; 82805; 82962; 83605; 83735; 83880; 84100; 84156; 84484; 85007; 85025; 85027; 85610; 85730; 87040; 87070; 87081; 87086; 87088; 87186; 87205; 87426; 92610; 92950; 93017; 93306; 93458; 93886; 94002; 94003; 94640; 94660; 95819; 96361; 96365; 96367; 96372; 96375; 97110; 97116; 97163; 97530; 99152; C9113; G0378; J0153; J0171; J0330; J0696; J1335; J1956; J2185; J2250; J2704; J3490; J7060